=== PATIENT | female | born 1995 | race Asian ===

== ENCOUNTER 2021-11-04 22:32 | Emergency (ER) | payer BC ==
[2021-11-05] MEDS ORDERED: Phenazopyridine 95 MG Tab PO STA (00:07)
== END 2021-11-05 00:30 | disposition home or self-care (01) ==
LOC: JD.ED 22:32
DX: N39.0 Urinary tract infection, site not specified (principal); Z88.1 Allergy status to other antibiotic agents
CPT/HCPCS: 81001; 81025; 99283; A9270; 99282